=== PATIENT | female | born 1945 | race Caucasian/White ===

== ENCOUNTER 2024-02-02 03:08 | Emergency (ER) | payer MEDICARE, SELFPAY ==
[2024-02-02 03:12] VITALS: BP 137/64
[2024-02-02 03:14] VITALS: BMI 27.9
--- NOTE | 2024-02-02 03:40 | ED.GENMED ---
History of Present Illness
General
Chief Complaint: Catheter/Tube Problem
Source: patient
Exam Limitations: none
Time Seen by Provider: 02/02/24 03:11
Nursing documentation reviewed up to this point in time: agreed with
History of Present Illness
History of Present Illness:
Patient with history of indwelling Zarate catheter, which she has had for the past 2 years, presents to ED secondary to low abdominal pressure along with lack of drainage from her Zarate catheter. Denies fever or chills. Denies nausea or vomiting.
Denies trauma. Denies recent change in medications or diet. Patient has had similar symptoms in the past, when there was blockage with a Zarate catheter.
Past History
Past History
ED Past Medical History: Arrthythmia, CAD, CHF, HTN, Hypercholesterolemia and NIDDM
ED Past Surgical History: Cardiac, Gynecological and Orthopedic
Social History
Living: alone
Review of Systems
Review of Systems
Allergies reviewed?: Yes
All Other Systems: ROS reviewed and negative except as documented in HPI and ROS
Constitutional: Reports no symptoms; Denies fever
ABD/GI: Reports abdominal pain; Denies nausea or vomiting
: Reports difficulty voiding
Musculoskeletal: Reports no symptoms
Skin: Reports no symptoms
Neurological: Reports no symptoms
Phy Exam
Physical Exam
Physical Exam:
Physical Exam
General: no apparent distress, not acutely ill. afebrile
Head: nc/at. eomi
Neck: supple. no meningeal signs.
Abdomen: normal bowel sounds. mild suprapubic tenderness to palpation. no distention
Neuro: alert and oriented. no focal neurological deficits
Skin: no rash
Psychiatric: well kept. interactive and cooperative
Extremities: no edema. no calf tenderness.
Course
Orders/Labs/Results
Orders:
Orders
02/02/24 05:27
Urine Culture Urgent
ROSIE Source: Urine
Specimen Description:
Obtained by: Indwelling Catheter
Date Specimen was Collected: 02/02/24
Time Specimen was Collected: 05:26
02/02/24 05:29
Acetaminophen [Tylenol] 650 mg .ROUTE .STK-MED ONE
Acetaminophen [Tylenol] 650 mg PO NOW STA
Vital Signs
Initial and Last Documented VS:
Initial Vital Signs
Temp Pulse Resp BP Pulse Ox
98.9 F 92 18 137/64 96
02/02/24 03:12 02/02/24 03:12 02/02/24 03:12 02/02/24 03:12 02/02/24 03:12
Last Documented Vital Signs
Temp Pulse Resp BP Pulse Ox
98.9 F 92 18 116/45 92
02/02/24 03:12 02/02/24 03:12 02/02/24 03:12 02/02/24 04:00 02/02/24 04:15
MDM/Problems Addressed
MDM/Problems Addressed:
Bladder scan: > 200 ml urine
Zarate catheter replaced with immediate relief in symptoms. Patient will be discharged, in stable condition.
*Critical Care Note
Total Time (30-74mins, 75-104mins- exclusive of procedures): Not Applicable
ED Attending Note
-
Portions of this chart may have been created with voice recognition software.� Occasional wrong word or��sound alike� substitutions may have occurred due to the inherent limitations of voice recognition software.
Discharge Plan
Departure
Patient Disposition: Home (Routine Discharge)
Date of Disposition: 02/02/24
Time of Disposition: 03:44
Patient with high blood pressure during this ER visit?: Yes
Discharge Problem:
Obstruction of Zarate catheter
Instructions: How to Care for Your Zarate Catheter
Prescriptions:
No Action
atorvastatin 40 mg Tablet
40 mg PO HS
metformin 500 mg Tablet
500 mg PO BID@0800,1700
torsemide 20 mg Tablet
20 mg PO DAILY
sotalol [Sotalol AF] 80 mg Tablet
80 mg PO DAILY
sotalol [Sotalol AF] 80 mg Tablet
40 mg PO QPM
aspirin 81 mg Tablet,Delayed Release (Dr/Ec)
81 mg PO QPM
spironolactone 25 mg Tablet
25 mg PO DAILY
warfarin 5 mg Tablet
5 mg PO MOFR@0800
omeprazole 20 mg Capsule,Delayed Release(Dr/Ec)
20 mg PO BID
cholecalciferol (vitamin D3) 25 mcg (1,000 unit) Tablet
25 mcg PO QPM
acetaminophen 500 mg Tablet
1,000 mg PO DAILYPRN PRN (Reason: mild pain)
warfarin 5 mg Tablet
2.5 mg PO SUTUWETHSA@0800
gabapentin 100 mg Capsule
100 mg PO HS
gabapentin 100 mg Capsule
100 mg PO BIDPRN PRN (Reason: neuropathy)
docusate sodium 100 mg Capsule
100 mg PO BID Qty: 14 0RF
polyethylene glycol 3350 17 gram Powder In Packet
17 g PO DAILY Qty: 14 0RF
cefdinir 300 mg Capsule
300 mg PO Q12 Qty: 10 0RF
Activity Restrictions/Additional Instructions:
As discussed, please follow-up with your primary care physician and/or urologist with any further concerns.
Interventions
Interventions:
*Risk Screen - Suicide Last Done: 02/02/24 03:12
*General Assessment Last Done: 02/02/24 03:12
*Neglect/Abuse Screening Last Done: 02/02/24 03:12
ED- Fall Risk Assessment Last Done: 02/02/24 07:45
*ED COVID-19 Vaccine History Last Done: 02/02/24 07:45
*Nursing Disposition Last Done: 02/02/24 07:45
HJ-Yfdirm-Lnygraqfxs Assessment Last Done: 02/02/24 03:15
ED-Female Genitourinary Assessment Last Done: 02/02/24 03:15
Discharge Date and Time
Discharge Date/Time: 02/02/24 07:45
Print Language: [place] CITIZEN
[2024-02-02 04:00] VITALS: BP 116/45
[2024-02-02] MEDS: TYLENOL 650 MG PO (05:30)
== END 2024-02-02 07:45 | disposition home or self-care (01) ==
LOC: EMR 03:08
PROVIDERS: EMERGENCY PHYSICIAN Emergency Medicine; FAMILY PHYSICIAN Internal Medicine Geriatric Medicine
DX: T83.091A Other mechanical complication of indwelling urethral catheter, initial encounter (principal); Y84.6 Urinary catheterization as the cause of abnormal reaction of the patient, or of later complication, without mention of misadventure at the time of the procedure; Y73.1 Therapeutic (nonsurgical) and rehabilitative gastroenterology and urology devices associated with adverse incidents; I11.0 Hypertensive heart disease with heart failure; I50.9 Heart failure, unspecified
CPT/HCPCS: 99283; 51798; 51702; 87086; 87088; 87186

== ENCOUNTER 2024-03-11 08:07 | Emergency (ER) | payer MEDICARE, SELFPAY ==
[2024-03-11 08:11] VITALS: BMI 28.2
[2024-03-11 08:41] VITALS: BP 130/55
--- NOTE | 2024-03-11 08:58 | ED.GENMED ---
History of Present Illness
General
Chief Complaint: Fall
Time Seen by Provider: 03/11/24 08:38
History of Present Illness
History of Present Illness:
78-year-old female presents to the emergency department for evaluation of right mid back pain after a fall out of bed. She denies head strike or loss of consciousness. Due to the back pain she had a difficult time getting herself up off the floor,
states it took approximately 1 to 2 hours to get up on her bed to call for help. Denies any upper extremity or lower extremity paresthesias. Denies any headache or vision changes. Does take Coumadin
Past History
Past History
ED Past Medical History: Arrthythmia, CAD, CHF, HTN, Hypercholesterolemia and NIDDM
ED Past Surgical History: Cardiac, Gynecological and Orthopedic
Social History
Living: alone
Review of Systems
Review of Systems
Allergies reviewed?: Yes
All Other Systems: ROS reviewed and negative except as documented in HPI and ROS
Phy Exam
Physical Exam
Physical Exam:
GEN: Well appearing, NAD, WDWN
Eyes: PERRLA, EOMs intact, no scleral icterus
HENT: NCAT, oral mucosa moist
Lungs: CTAB, no wheezes, rales, rhonchi, normal chest wall excursion
Cardiac: RRR, no M/R/G, no peripheral edema. Radial pulses 2+ bilat
Abdomen: S, NT, ND, NABS, no masses or hepatosplenomegaly
Neuro: AO x 3, no focal deficits to BUE/BLE, normal sensation throughout
MSK: Mild swelling of the right mid thoracic back, no gross deformities, no crepitus on palpation
Skin: No rashes, petechiae. Normal color, no pallor or jaundice.
Psych: Calm, cooperative, proper hygiene
Course
Orders/Labs/Results
Orders:
Orders
03/11/24 08:21
Ribs, Right 3 View W/PA Chest [CR Ribs-right 3 Vw W/pa Chest*] Urgent
Comment:
Reason For Exam: fall/pain
03/11/24 08:57
CT Chest W/o Iv Contrast Urgent
Comment:
Reason For Exam: R thoracic back injury
Acetaminophen [Tylenol] 1,000 mg PO NOW STA
Lidocaine [Lidocaine 4% Patch] 1 patch TOPICAL NOW STA
Apply Lidocaine patch(s) to:: R back
03/11/24 11:18
Oxycodone [Roxicodone] 5 mg PO NOW STA
Vital Signs
Initial and Last Documented VS:
Initial Vital Signs
Pulse Resp Pulse Ox
72 18 94
03/11/24 08:18 03/11/24 08:18 03/11/24 08:18
Last Documented Vital Signs
Temp Pulse Resp BP Pulse Ox
97.8 F 70 19 138/65 96
03/11/24 08:41 03/11/24 11:15 03/11/24 11:15 03/11/24 11:00 03/11/24 11:28
MDM/Problems Addressed
MDM/Problems Addressed:
After initial x-ray was obtained and the decision was made to obtain a CT based on the patient's anticoagulant use and persistent pain. This did reveal a isolated 11th rib fracture on the right. No concern for pneumothorax or hemothorax.
Patient's pain was treated supportively in the emergency department. Discussed use of incentive spirometry and further supportive care
*Critical Care Note
Total Time (30-74mins, 75-104mins- exclusive of procedures): Not Applicable
ED Attending Note
-
Portions of this chart may have been created with voice recognition software.� Occasional wrong word or��sound alike� substitutions may have occurred due to the inherent limitations of voice recognition software.
Discharge Plan
Departure
Patient Disposition: Home (Routine Discharge)
Date of Disposition: 03/11/24
Time of Disposition: 10:41
Patient with high blood pressure during this ER visit?: No
Discharge Problem:
Fracture of rib
Instructions: How to Use an Incentive Spirometer, Rib Fracture
Prescriptions:
New
oxycodone 5 mg tablet
2.5 - 5 mg PO Q8H PRN (Reason: Pain) Qty: 6 0RF
No Action
atorvastatin 40 mg Tablet
40 mg PO HS
metformin 500 mg Tablet
500 mg PO BID@0800,1700
torsemide 20 mg Tablet
20 mg PO DAILY
sotalol [Sotalol AF] 80 mg Tablet
80 mg PO DAILY
sotalol [Sotalol AF] 80 mg Tablet
40 mg PO QPM
aspirin 81 mg Tablet,Delayed Release (Dr/Ec)
81 mg PO QPM
spironolactone 25 mg Tablet
25 mg PO DAILY
warfarin 5 mg Tablet
5 mg PO MOFR@0800
omeprazole 20 mg Capsule,Delayed Release(Dr/Ec)
20 mg PO BID
cholecalciferol (vitamin D3) 25 mcg (1,000 unit) Tablet
25 mcg PO QPM
acetaminophen 500 mg Tablet
1,000 mg PO DAILYPRN PRN (Reason: mild pain)
warfarin 5 mg Tablet
2.5 mg PO SUTUWETHSA@0800
gabapentin 100 mg Capsule
100 mg PO HS
gabapentin 100 mg Capsule
100 mg PO BIDPRN PRN (Reason: neuropathy)
docusate sodium 100 mg Capsule
100 mg PO BID Qty: 14 0RF
polyethylene glycol 3350 17 gram Powder In Packet
17 g PO DAILY Qty: 14 0RF
cefdinir 300 mg Capsule
300 mg PO Q12 Qty: 10 0RF
Referrals:
Dinora Javed MD [Family Provider] -
Interventions
Interventions:
*Risk Screen - Suicide Last Done: 03/11/24 08:14
*General Assessment Last Done: 03/11/24 08:14
*Neglect/Abuse Screening Last Done: 03/11/24 08:14
ED- Fall Risk Assessment Last Done: 03/11/24 08:18
*ED COVID-19 Vaccine History Last Done: 03/11/24 08:14
*Nursing Disposition Last Done: 03/11/24 11:28
ED-Musculoskeletal Assessment Last Done: 03/11/24 08:19
ED- Neurological Assessment Last Done: 03/11/24 08:19
ED-Skin Assessment Last Done: 03/11/24 08:19
Discharge Date and Time
Discharge Date/Time: 03/11/24 11:43
Print Language: ROMANIAN
[2024-03-11 09:21] VITALS: BP 138/66
[2024-03-11] MEDS: LIDOCAINE 4% PATCH 1 PATCH TOPICAL (09:22)
[2024-03-11] MEDS: TYLENOL 1000 MG PO (09:22)
[2024-03-11 09:45] VITALS: BP 152/68
[2024-03-11 10:00] VITALS: BP 139/59
[2024-03-11 11:00] VITALS: BP 138/65
[2024-03-11] MEDS: ROXICODONE 5 MG PO (11:24)
== END 2024-03-11 11:43 | disposition home or self-care (01) ==
LOC: EMR 08:07
PROVIDERS: EMERGENCY PHYSICIAN Emergency Medicine; FAMILY PHYSICIAN Internal Medicine Geriatric Medicine
DX: S22.31XA Fracture of one rib, right side, initial encounter for closed fracture (principal); W06.XXXA Fall from bed, initial encounter; I11.0 Hypertensive heart disease with heart failure; I50.9 Heart failure, unspecified; I25.10 Atherosclerotic heart disease of native coronary artery without angina pectoris; E78.00 Pure hypercholesterolemia, unspecified; E11.9 Type 2 diabetes mellitus without complications; Z79.01 Long term (current) use of anticoagulants; Z79.84 Long term (current) use of oral hypoglycemic drugs; Z88.1 Allergy status to other antibiotic agents; Z88.8 Allergy status to other drugs, medicaments and biological substances
CPT/HCPCS: 99284; 71101; 71250

== ENCOUNTER 2024-07-15 15:53 | Emergency (ER) | payer MEDICARE, SELFPAY ==
[2024-07-15 16:08] VITALS: BP 150/94
--- NOTE | 2024-07-15 16:14 | ED.GENMED ---
ED Provider Triage
<Sudheer Peraza PA-C - Last Filed: 07/16/24 08:13>
-
Patient seen by provider in Triage?: Seen in Triage
Attestation: A medical screening examination has been initiated by a qualified medical provider. Based on the assessment performed at this time, it has been determined that an emergent medical condition may exist and the patient has been informed
that further medical evaluation and possible additional diagnostic testing may be needed.
HPI: 79-year-old female, on Coumadin, presents to the emergency department after biting her right lower lip yesterday and had some continuous lower lip bleeding, was able to get it under control but today the bleeding persisted. No other concerns
presently. There is still continued bleeding/oozing in triage. CBC ordered to check platelets as well as INR. TXA soaked gauze with clamp placed over top and patient advised to keep this in place.
GENERAL: Alert , in no apparent distress
EYE: No visual abnormalities.
NECK: Trachea midline
ENT: No visible abnormalities.
LUNGS: No acute respiratory distress
NEUROLOGICAL: Alert and oriented
SKIN: Skin intact. No visible changes.
MUSCULOSKELETAL: Moving extremities normally
PSYCH: Normal and appropriate interaction.
This is a medical evaluation conducted in person to initiate diagnostic evaluation and provide initial therapeutics. Please see further documentation by the treating clinician.
History of Present Illness
<Sudheer Peraza PA-C - Last Filed: 07/16/24 08:13>
General
Chief Complaint: Oral/Mouth Problem
Time Seen by Provider: 07/15/24 19:51
<Mercedes Garcia PA-C - Last Filed: 07/22/24 17:29>
General
Source: patient
Exam Limitations: none
Nursing documentation reviewed up to this point in time: agreed with
History of Present Illness
History of Present Illness:
79 y/o F
afib on warfarin
says she thinks she bit her lip while sleepin and it is a tiny puncture tht won't stop oozing
pt has not had any weaknes, lightheadedness, pain, syncope
no bleeding rom anywhere else
Past History
<Sudheer Peraza PA-C - Last Filed: 07/16/24 08:13>
Past History
ED Past Medical History: Arrthythmia, CAD, CHF, HTN, Hypercholesterolemia and NIDDM
ED Past Surgical History: Cardiac, Gynecological and Orthopedic
Social History
Living: alone
Review of Systems
<Mercedes Garcia PA-C - Last Filed: 07/22/24 17:29>
Review of Systems
Allergies reviewed?: Yes
All Other Systems: Not applicable
Phy Exam
<BRENDA Miles Last Filed: 07/22/24 17:29>
Physical Exam
Physical Exam:
GENERAL: Alert , in no apparent distress
EYE: pupils equal and reactive
ENT: teeth intact
lower lip middle very tiny puncture hole with oozing blood; no pulsation
CARDIAC: Regular rate and rhythm, no edema
LUNGS: Clear breath sounds bilaterally, no acute respiratory distress, no wheezes/rales/rhonchi, occ cough
A
SKIN: Warm and dry,
PSYCH: Normal and appropriate interaction.
Course
<Sudheer Peraza PA-C - Last Filed: 07/16/24 08:13>
Orders/Labs/Results
Orders:
Orders
07/15/24 16:13
Tranexamic Acid 250 mg TOPICAL NOW STA
07/15/24 16:24
CBC/With Diff [Complete Blood Count/With Diff] Urgent
Prothrombin Time Urgent
Abnormal Lab Results
07/15/24
16:24
RBC 4.09 L 10^6/uL
(4.20-5.40)
Hct 36.8 L %
(37.0-47.0)
MCHC 32.6 L g/dL
(33.0-37.0)
RDW 15.3 H %
(11.5-14.5)
Absolute Monos (auto) 0.9 H 10^3/uL
(0.1-0.6)
Monocytes % 11.3 H %
(1.7-9.3)
PT 26.4 H Sec
(11.4-14.6)
07/15/24 16:24
Vital Signs
Initial and Last Documented VS:
Initial Vital Signs
Temp Pulse Resp BP Pulse Ox
37.2 C 66 18 150/94 98
07/15/24 16:08 07/15/24 16:08 07/15/24 16:08 07/15/24 16:08 07/15/24 16:08
Last Documented Vital Signs
Temp Pulse Resp BP Pulse Ox
37.2 C 63 18 129/58 94
07/15/24 16:08 07/15/24 19:44 07/15/24 19:44 07/15/24 19:44 07/15/24 19:44
Josianelt;Mercedes Garcia PA-C - Last Filed: 07/22/24 17:29>
Orders/Labs/Results
Orders:
Orders
07/15/24 16:13
Tranexamic Acid 250 mg TOPICAL NOW STA
07/15/24 16:24
CBC/With Diff [Complete Blood Count/With Diff] Urgent
Prothrombin Time Urgent
Abnormal Lab Results
07/15/24
16:24
RBC 4.09 L 10^6/uL
(4.20-5.40)
Hct 36.8 L %
(37.0-47.0)
MCHC 32.6 L g/dL
(33.0-37.0)
RDW 15.3 H %
(11.5-14.5)
Absolute Monos (auto) 0.9 H 10^3/uL
(0.1-0.6)
Monocytes % 11.3 H %
(1.7-9.3)
PT 26.4 H Sec
(11.4-14.6)
07/15/24 16:24
Vital Signs
Initial and Last Documented VS:
Initial Vital Signs
Temp Pulse Resp BP Pulse Ox
37.2 C 66 18 150/94 98
07/15/24 16:08 07/15/24 16:08 07/15/24 16:08 07/15/24 16:08 07/15/24 16:08
Last Documented Vital Signs
Temp Pulse Resp BP Pulse Ox
37.2 C 63 18 129/58 94
07/15/24 16:08 07/15/24 19:44 07/15/24 19:44 07/15/24 19:44 07/15/24 19:44
Procedures
<Mercedes Garcia PA-C - Last Filed: 07/22/24 17:29>
Laceration Closure
Right Lower Lip:
Status of Wound: bite
Size of Wound in cm: 0.1
Description of Wound Edges: other (puncure)
Anesthesia: 1% Lidocaine with epi
Revision/Debridement: routine- no revision
Type of Closure: single layer closure
Skin Closure Material: 5-0 chromic gut
Number of sutures: 1
<Mercedes Garcia PA-C - Last Filed: 07/22/24 17:29>
MDM/Problems Addressed
Differential Diagnosis Includes:
puncture wound, bleeding
MDM/Problems Addressed:
79 y/o anticoagulated
tiny puncture, doesn't recall how she got it, on her r lower lip
oozing since last night
no syncopal symptos
stable bp
hg stable
inr 2.4
despite pressure still oozing
1 single suture placed and then held and bleeding conrolled
obs for 30 minutes, no rebleeding
d/c home
<Mercedes Garcia PA-C - Last Filed: 07/22/24 17:29>
*Critical Care Note
Total Time (30-74mins, 75-104mins- exclusive of procedures): Not Applicable
ED Attending Note
<Sudheer Peraza PA-C - Last Filed: 07/16/24 08:13>
-
Portions of this chart may have been created with voice recognition software.� Occasional wrong word or��sound alike� substitutions may have occurred due to the inherent limitations of voice recognition software.
Discharge Plan
Departure
Patient Disposition: Home (Routine Discharge)
Date of Disposition: 07/15/24
Time of Disposition: 20:51
Patient with high blood pressure during this ER visit?: No
Condition: Fair
Covid-19: Not Applicable
Discharge Problem:
Puncture wound of lip
Instructions: Stitches - ED discharge instructions
Prescriptions:
New
penicillin V potassium 500 mg tablet
500 mg PO BID Qty: 10 0RF
No Action
atorvastatin 40 mg Tablet
40 mg PO HS
metformin 500 mg Tablet
500 mg PO BID@0800,1700
torsemide 20 mg Tablet
20 mg PO DAILY
sotalol [Sotalol AF] 80 mg Tablet
80 mg PO DAILY
sotalol [Sotalol AF] 80 mg Tablet
40 mg PO QPM
aspirin 81 mg Tablet,Delayed Release (Dr/Ec)
81 mg PO QPM
spironolactone 25 mg Tablet
25 mg PO DAILY
warfarin 5 mg Tablet
5 mg PO MOFR@0800
omeprazole 20 mg Capsule,Delayed Release(Dr/Ec)
20 mg PO BID
cholecalciferol (vitamin D3) 25 mcg (1,000 unit) Tablet
25 mcg PO QPM
acetaminophen 500 mg Tablet
1,000 mg PO DAILYPRN PRN (Reason: mild pain)
warfarin 5 mg Tablet
2.5 mg PO SUTUWETHSA@0800
gabapentin 100 mg Capsule
100 mg PO HS
gabapentin 100 mg Capsule
100 mg PO BIDPRN PRN (Reason: neuropathy)
docusate sodium 100 mg Capsule
100 mg PO BID Qty: 14 0RF
polyethylene glycol 3350 17 gram Powder In Packet
17 g PO DAILY Qty: 14 0RF
cefdinir 300 mg Capsule
300 mg PO Q12 Qty: 10 0RF
oxycodone 5 mg tablet
2.5 - 5 mg PO Q8H PRN (Reason: Pain) Qty: 6 0RF
Referrals:
Dinora Javed MD [Family Provider] -
Activity Restrictions/Additional Instructions:
Try to keep the lip clean and dry. I put 1 stitch in the wound that should dissolve and fall off on its own. If it is still there in a week or so you can have your doctor try to take it out. Ice off-and-on as needed for bruising and swelling.
You can try clamping it if it starts to bleed again but if it still bleeding after 20 minutes return to the ER.
Interventions
Interventions:
*Risk Screen - Suicide Last Done: 07/15/24 16:08
*General Assessment Last Done: 07/15/24 16:08
*Neglect/Abuse Screening Last Done: 07/15/24 16:08
ED- Fall Risk Assessment Last Done: 07/15/24 19:44
*ED COVID-19 Vaccine History Last Done: 07/15/24 16:08
*Nursing Disposition Last Done: 07/15/24 21:04
Discharge Date and Time
Discharge Date/Time: 07/15/24 21:05
Print Language: ANGOLAN
[2024-07-15] MEDS: TRANEXAMIC ACID 250 MG TOPICAL (16:15)
[2024-07-15 16:31] LABS: % Basophils 0.3 % (0-2); % Eosinophils 3.3 % (0-6); % Immature Granulocytes 0.4 % (0-0.5); % Lymphocytes 20.9 % (20.5-51.1); % Monocytes 11.3 % (1.7-9.3); % Neutrophils 63.8 % (42.2-75.2); Absolute Eosinophils 0.3 10^3/uL (0-0.7); Absolute Lymphocytes 1.6 10^3/uL (1.2-3.4); Absolute Monocytes 0.9 10^3/uL (0.1-0.6); Absolute Neutrophils 4.8 10^3/uL (1.4-6.5); Hematocrit 36.8 % (37.0-47.0); Mean Corp Hgb Conc. 32.6 g/dL (33.0-37.0); Mean Corpuscular Hgb 29.3 pg (27.0-31.0); Mean Platelet Volume 10.3 fL (7.4-10.4); Nucleated Red Blood Cells % 0 %; Platelet Count 300 10^3/uL (130-400); Red Blood Cell Count 4.09 10^6/uL (4.20-5.40); Red Cell Dist. Width 15.3 % (11.5-14.5); White Blood Cell Count 7.5 10^3/uL (4.8-10.8)
[2024-07-15 16:43] LABS: INR 2.43; PT 26.4 Sec (11.4-14.6)
[2024-07-15 19:40] VITALS: BMI 26.0
[2024-07-15 19:44] VITALS: BP 129/58
== END 2024-07-15 21:05 | disposition home or self-care (01) ==
LOC: EMR 15:53
PROVIDERS: EMERGENCY PHYSICIAN Emergency Medicine; FAMILY PHYSICIAN Internal Medicine Geriatric Medicine
DX: S01.531A Puncture wound without foreign body of lip, initial encounter (principal); X58.XXXA Exposure to other specified factors, initial encounter; I25.10 Atherosclerotic heart disease of native coronary artery without angina pectoris; I11.0 Hypertensive heart disease with heart failure; I50.9 Heart failure, unspecified; E78.00 Pure hypercholesterolemia, unspecified; E11.9 Type 2 diabetes mellitus without complications; Z79.01 Long term (current) use of anticoagulants; Z88.6 Allergy status to analgesic agent; Z88.1 Allergy status to other antibiotic agents; Z88.8 Allergy status to other drugs, medicaments and biological substances
CPT/HCPCS: 99283; 12011; 85025; 85610

== ENCOUNTER 2025-03-02 03:55 | Emergency (ER) | payer MEDICARE, SELFPAY ==
[2025-03-02] VITALS (7 sets, daily range): BP systolic 118–134; BP diastolic 46–66; BMI 27.7
[2025-03-02 05:26] LABS: Urine Character Slightly Cloudy (Clear)
[2025-03-02 06:00] LABS: Urine Squamous Cell 0-2 /LPF (Few)
[2025-03-02 06:01] LABS: Urine Red Blood Cell 70-80 /HPF (0-2); Urine White Cell 70-80 /HPF (0-5)
[2025-03-02] MEDS: MONUROL 3 GM PO (06:26)
--- NOTE | 2025-03-02 06:45 | ED.GENMED ---
History of Present Illness
General
Chief Complaint: Catheter/Tube Problem
Source: patient
Exam Limitations: none
Time Seen by Provider: 03/02/25 04:19
Nursing documentation reviewed up to this point in time: agreed with
History of Present Illness
History of Present Illness:
Note:
CHIEF COMPLAINT(S)
Leaking Zarate catheter.
HISTORY OF PRESENT ILLNESS
The patient is an 79-year-old female with a chronic indwelling Zarate catheter who presents with a leaking catheter. The patient reports that urine was leaking around the edge of the Zarate catheter upon arrival. The nursing staff promptly replaced
the catheter. A urine sample was collected and revealed a urinary tract infection (UTI).
ALLERGIES
The patient reports a mild allergy to Toradol (ketorolac).
MEDICATIONS
The patient has been started on Cephalexin for the treatment of the urinary tract infection.
PHYSICAL EXAM
General: Alert, no acute distress.
Skin: Warm, dry.
Head: Normocephalic, atraumatic.
Neck: Supple, trachea midline.
Eye Ears, nose, mouth and throat: Oral mucosa moist.
Cardiovascular: Normal peripheral perfusion, no edema.
Respiratory: Respirations are non-labored.
Gastrointestinal: Abdomen nondistended.
Back: Normal range of motion, normal alignment.
Musculoskeletal: Normal range of motion, normal strength.
Neurological: Alert and oriented to person, place, time, and situation, no focal neurological deficit observed.
Psychiatric: Cooperative, appropriate mood and affect.
PROBLEM LIST
- Acute:
- Urinary tract infection (UTI)
- Malfunctioning Zarate catheter
PLAN
- The patient to be discharged home.
- Treatment initiated with Cephalexin for the urinary tract infection.
- Patient education regarding catheter care was likely provided due to previous malfunction.
DIFFERENTIAL DIAGNOSIS
The Differential Diagnosis includes, in no particular order and is not limited to:
- Urinary infection
- Zarate catheter malfunction
- Nephrolithiasis
- Bladder carcinoma
- Interstitial cystitis
- Urinary incontinence
- Bladder stones
- Urethral stricture
- Prolapsed bladder
- Pelvic inflammatory disease
Disposition:
SUMMARY OF ENCOUNTER
The patient, an 79-year-old female with a chronic indwelling Zarate catheter, arrived in the emergency department with a leaking catheter. Upon arrival, EMS had transported her to the hospital. The Zarate catheter was promptly replaced in the
emergency department. A diagnosis of a urinary tract infection (UTI) has been made and is being managed with antibiotics.
DISPOSITION
The patient is to be discharged home with appropriate follow-up care.
PLAN
- Discharge the patient home.
- Continue treatment with Cephalexin for the urinary tract infection.
- Emphasize proper Zarate catheter care to prevent future complications.
INDEPENDENT REVIEW OF LABS AND INTERPRETATION OF TESTS
My independent review of the urine sample shows evidence consistent with a urinary tract infection.
PATIENT EDUCATION AND COUNSELING
The patient was likely provided education on proper Zarate catheter maintenance and care to prevent complications such as leakages and infections.
MEDICATION RECONCILIATION
Prescription medication was prescribed:
1. Cephalexin for the treatment of the urinary tract infection.
MEDICAL DECISION MAKING
-Complexity of Data Reviewed:
Chronic conditions affecting care [chronic indwelling Zarate catheter]
Differential Diagnosis includes: Urinary infection, Zarate catheter malfunction, Nephrolithiasis, Bladder carcinoma, Interstitial cystitis, Urinary incontinence, Bladder stones, Urethral stricture, Prolapsed bladder, Pelvic inflammatory disease.
-Data:
Category 1
- The following testing was conducted: urine sample revealing a urinary tract infection.
-Risk:
Prescription medication was prescribed: Cephalexin for the UTI treatment.
DIAGNOSIS
1. Urinary tract infection (UTI) - ICD-10: N39.0
2. Malfunctioning Zarate catheter - ICD-10: T83.098A
Past History
Past History
ED Past Medical History: Arrthythmia, CAD, CHF, HTN, Hypercholesterolemia and NIDDM
ED Past Surgical History: Cardiac, Gynecological and Orthopedic
Social History
Living: alone
Phy Exam
Physical Exam
Physical Exam:
.
Course
Orders/Labs/Results
Orders:
Orders
03/02/25 04:33
Urinalysis Reflex To Culture Urgent
Date Specimen was Collected: 03/02/25
Time Specimen was Collected: 04:31
Urine Microscopic Reflex Cult Urgent
Urine Culture Urgent
ROSIE Source: U
Specimen Description:
Date Specimen was Collected: 03/02/25
Time Specimen was Collected: 04:31
03/02/25 05:47
Fosfomycin [Monurol] 3 gm PO ONCE ONE
Abnormal Lab Results
03/02/25
04:33
Urine Ketones 1+ A
(Negative)
Ur Occult Blood Reflex 4+ A
(Negative)
Urine Nitrite (Reflex) Positive A
(Negative)
Urine Bilirubin 3+ A
(Negative)
Urine Urobilinogen 4+ A
(Neg - 1+)
Leukocyte Esterase Rfl 3+ A
(Negative)
Urine RBC 70-80 A /HPF
(0-2)
Urine WBC (Reflex) 70-80 A /HPF
(0-5)
Urine Bacteria (Reflex) Many A
(Negative)
Urine Albumin (Reflex) 3+ A
(Neg - Trace)
Vital Signs
Initial and Last Documented VS:
Initial Vital Signs
Temp Pulse Resp BP Pulse Ox
98.3 F 67 16 118/66 93
03/02/25 03:59 03/02/25 03:59 03/02/25 03:59 03/02/25 03:59 03/02/25 03:59
Last Documented Vital Signs
Temp Pulse Resp BP Pulse Ox
98.3 F 67 16 131/46 89
03/02/25 03:59 03/02/25 03:59 03/02/25 03:59 03/02/25 06:00 03/02/25 06:46
*Pulse Oximetry
SaO2: 89
Oxygen Mode of Delivery: Room air
Patient hypoxic: no
*Critical Care Note
Total Time (30-74mins, 75-104mins- exclusive of procedures): Not Applicable
ED Attending Note
-
Portions of this chart may have been created with voice recognition software.� Occasional wrong word or��sound alike� substitutions may have occurred due to the inherent limitations of voice recognition software.
Discharge Plan
Departure
Patient Disposition: Home (Routine Discharge)
Date of Disposition: 03/02/25
Time of Disposition: 06:45
Patient with high blood pressure during this ER visit?: Yes
Condition: Good
Discharge Problem:
Acute UTI, Complication of Zarate catheter
Instructions: Urinary tract infections in adults, How to Care for Your Zarate Catheter
Prescriptions:
New
cephalexin 500 mg capsule
500 mg PO Q6H 10 Days Qty: 40 0RF
No Action
atorvastatin 40 mg Tablet
40 mg PO HS
metformin 500 mg Tablet
500 mg PO BID@0800,1700
torsemide 20 mg Tablet
20 mg PO DAILY
sotalol [Sotalol AF] 80 mg Tablet
80 mg PO DAILY
sotalol [Sotalol AF] 80 mg Tablet
40 mg PO QPM
aspirin 81 mg Tablet,Delayed Release (Dr/Ec)
81 mg PO QPM
spironolactone 25 mg Tablet
25 mg PO DAILY
warfarin 5 mg Tablet
5 mg PO MOFR@0800
omeprazole 20 mg Capsule,Delayed Release(Dr/Ec)
20 mg PO BID
cholecalciferol (vitamin D3) 25 mcg (1,000 unit) Tablet
25 mcg PO QPM
acetaminophen 500 mg Tablet
1,000 mg PO DAILYPRN PRN (Reason: mild pain)
warfarin 5 mg Tablet
2.5 mg PO SUTUWETHSA@0800
gabapentin 100 mg Capsule
100 mg PO HS
gabapentin 100 mg Capsule
100 mg PO BIDPRN PRN (Reason: neuropathy)
docusate sodium 100 mg Capsule
100 mg PO BID Qty: 14 0RF
polyethylene glycol 3350 17 gram Powder In Packet
17 g PO DAILY Qty: 14 0RF
cefdinir 300 mg Capsule
300 mg PO Q12 Qty: 10 0RF
oxycodone 5 mg tablet
2.5 - 5 mg PO Q8H PRN (Reason: Pain) Qty: 6 0RF
penicillin V potassium 500 mg tablet
500 mg PO BID Qty: 10 0RF
Referrals:
Dinora Javed MD [Family Provider, Internal Medicine]
Activity Restrictions/Additional Instructions:
Your prescriptions were sent electronically to the pharmacy that you specified.
Thank You for choosing [facility].
It was a pleasure meeting you and taking part in your care. We hope for your continued healing and wellness.
Please read discharge instructions in their entirety. However, they are for general education and may not describe your exact diagnosis at discharge. Information on your ER visit and medical conditions were discussed with you along with appropriate
follow up information...
If indicated, please take your medications as instructed and indicated on discharge paperwork.
Please schedule a follow up appointment as directed. Call to schedule an appointment
Please return to the emergency department with ANY change in, persisting, or worsening of symptoms. If any of your symptoms do not improve, or persist, or become more severe within 6-12 hours, please return to the emergency department for further
care.
Please return to the emergency department if you develop a headache, neck pain/stiffness, fever greater than 100.4F, chest pain, shortness of breath, persistent nausea, vomiting, slurred speech, difficulty walking, numbness/tingling, weakness, signs
of infection or any other symptoms that are worrisome to you.
If you have any questions or concerns please do not hesitate to call the Hospital at or E-mail me directly at [email or web address]
Interventions
Interventions:
*Risk Screen - Suicide Last Done: 03/02/25 04:05
*General Assessment Last Done: 03/02/25 04:05
*Neglect/Abuse Screening Last Done: 03/02/25 04:06
*ED- Fall Risk Assessment Last Done: 03/02/25 04:07
*ED COVID-19 Vaccine History Last Done: 03/02/25 04:08
ML-Oggrrn-Viyolqbgys Assessment Last Done: 03/02/25 04:10
ED-Female Genitourinary Assessment Last Done: 03/02/25 04:10
Discharge Date and Time
Print Language: BELIZEAN
== END 2025-03-02 09:27 | disposition home or self-care (01) ==
LOC: EMR 03:55
PROVIDERS: EMERGENCY PHYSICIAN Student in an Organized Health Care Education/Training Program; FAMILY PHYSICIAN Internal Medicine Geriatric Medicine
DX: N39.0 Urinary tract infection, site not specified (principal); T83.091A Other mechanical complication of indwelling urethral catheter, initial encounter; Y84.6 Urinary catheterization as the cause of abnormal reaction of the patient, or of later complication, without mention of misadventure at the time of the procedure; I11.0 Hypertensive heart disease with heart failure; I50.9 Heart failure, unspecified; E78.00 Pure hypercholesterolemia, unspecified; E11.9 Type 2 diabetes mellitus without complications
CPT/HCPCS: 51702; 99283; 81003; 81015; 87086